=== PATIENT | female | born 1995 | race African-American/Black ===

== ENCOUNTER 2021-09-04 13:16 | Emergency (ER) | payer MEDICAID, OTHER ==
[~2021-09-04] VITALS: Ht 167.6 cm; Wt 89.0 kg
[2021-09-04 14:30] LABS: Basophils # (auto) 0 10 ^3/uL (0-0.2); Eosinophils # (auto) 0 10 ^3/uL (0-0.8); Lymphocytes # (auto) 4.1 10 ^3/uL (0.4-5.4); Nucleated Red Blood Cells % 0.2 %
[2021-09-04 14:32] LABS: Basophils % (auto) 0.5 % (0.0-2.0); Eosinophils % (auto) 0.3 % (0.0-7.0); Hematocrit 39.6 % (36.0-46.0); Hemoglobin 12.5 g/dL (12.2-16.2); Lymphocytes % (auto) 41.9 % (10.0-50.0); Mean Corpuscular Hgb Conc. 31.5 g/dL (32.0-36.0); Mean Corpuscular Volume 79.4 fL (80.0-100.0); Monocytes # (auto) 1.1 10 ^3/uL (0-1.3); Monocytes % (auto) 10.9 % (0.0-12.0); Neutrophils # (auto) 4.6 10 ^3/uL (1.6-8.6); Neutrophils % (auto) 46.4 % (37.0-80.0); Red Blood Cells 4.98 10^6/uL (4.0-5.20); Red Cell Distribution Width 15.4 % (11.8-14.3); White Blood Cell 9.8 10^3/uL (4.4-10.8)
[2021-09-04 14:44] LABS: Urine Bacteria NONE SEEN /hpf (None Seen); Urine Blood Negative /uL (Negative); Urine Specific Gravity 1.027 (1.001-1.035); Urine WBC 1 /hpf (0 - 5)
[2021-09-04 14:47] LABS: Albumin 3.6 g/dL (3.4-5.0); Calcium 9.2 mg/dL (8.5-10.1); Magnesium 1.9 mg/dL (1.6-2.6)
[2021-09-04 14:51] LABS: BUN/Creatinine Ratio 23.1; Bilirubin, Total 1.9 mg/dL (0.2-1.0)
[2021-09-04 15:00] VITALS: BP 130/70
[2021-09-04] MEDS ORDERED: AZIT500T66 PO (16:16)
[2021-09-04] MEDS ORDERED: LIDO2SOL23 MT (16:16)
== END 2021-09-04 16:47 | disposition home or self-care (01) ==
LOC: ER 13:16
DX: J03.90 Acute tonsillitis, unspecified (principal); R07.89 Other chest pain
CPT/HCPCS: 36415; 71046; 80053; 81001; 83735; 84484; 85025; 93005

== ENCOUNTER 2022-11-22 15:35 | Inpatient (IN) | payer MEDICAID, OTHER ==
[~2022-11-22] VITALS: Ht 167.6 cm; Wt 98.1 kg
[~2022-11-22 15:35] MED LIST: AZIT500T66 PO; LIDO2SOL26 MT
[2022-11-22 16:49] LABS: Basophils # (auto) 0 10 ^3/uL (0-0.2); Basophils % (auto) 0.2 % (0.0-2.0); Eosinophils # (auto) 0 10 ^3/uL (0-0.8); Hemoglobin 9.5 g/dL (12.2-16.2); Neutrophils # (auto) 11.4 10 ^3/uL (1.6-8.6); Nucleated Red Blood Cells % 0.1 %
[2022-11-22 16:51] LABS: Hematocrit 30.6 % (36.0-46.0); Lymphocytes # (auto) 1.9 10 ^3/uL (0.4-5.4); Lymphocytes % (auto) 13.3 % (10.0-50.0); Mean Corpuscular Hemoglobin 23.7 pg (28.0-32.0); Mean Corpuscular Hgb Conc. 30.9 g/dL (32.0-36.0); Mean Corpuscular Volume 76.6 fL (80.0-100.0); Monocytes # (auto) 0.9 10 ^3/uL (0-1.3); Monocytes % (auto) 6.5 % (0.0-12.0); Red Cell Distribution Width 16.4 % (11.8-14.3); White Blood Cell 14.3 10^3/uL (4.4-10.8)
[2022-11-22 17:21] LABS: Alanine Aminotransferase 10 U/L (7-40); Albumin 3.6 g/dL (3.2-4.8); Alkaline Phosphatase 69 U/L (46-116); Anion Gap 6 (5-15); Aspartate Aminotransferase 10 U/L (13-40); BUN/Creatinine Ratio 47.8 (10.0-20.0); Blood Urea Nitrogen 32 mg/dL (9-23); Calcium 8.7 mg/dL (8.7-10.4); Carbon Dioxide 26 mmol/L (20-30); Chloride 107 mmol/L (98-107); Glucose 133 mg/dL (74-106); Lipase 36 U/L (12-53); Sodium 139 mmol/L (136-145)
[2022-11-22 17:22] LABS: Total Protein 6.4 g/dL (5.7-8.2)
[2022-11-22 18:32] VITALS: PULSE 124; RESP 21; O2SAT 100
[2022-11-22] MEDS ORDERED: PANTOPRAZOLE 80 MG in SODIUM CHL 0.9% 100 ML IV ONE (19:15)
[2022-11-22] MEDS ORDERED: PANTOPRAZOLE 40mg/50ML NS AE 50 ML IV ONE (19:15)
[2022-11-22] MEDS ORDERED: SODIUM CHLORIDE 0.9% 2,850 ML IV ONE (19:15)
[2022-11-22] MEDS ORDERED: VANCOMYCIN 1GM/250ML 250 ML IV ONE ×2 (19:15→20:30)
[2022-11-22] MEDS ORDERED: PIPERACILLIN-TAZO 4.5GM 100 ML IV ONE (19:15)
[2022-11-22 19:27] LABS: INR 1.1 (0.9-1.15); Prothrombin Time 11.5 sec (9.3-11.8)
[2022-11-22 19:35] LABS: Acetaminophen < 2.0 UG/ML (10.0-20.0)
[2022-11-22 19:37] LABS: Salicylate < 3.0 mg/dL (2.8-20.0)
[2022-11-22 19:40] VITALS: PULSE 130; RESP 15; O2SAT 100
[2022-11-22] MEDS ORDERED: HYDROcodone-ACET 5/325MG TAB PO PRN (21:00)
[2022-11-22] MEDS ORDERED: VANCOMYCIN PER PHARMACY 0 MG IV SCH (21:00)
[2022-11-22] MEDS ORDERED: ACETAMINOPHEN 325 MG TAB PO PRN (21:00)
[2022-11-22] MEDS: MORPHINE SULFATE INJ 2 MG/ml SYRG IV PRN (21:53)
[2022-11-22] MEDS: SODIUM CHLORIDE 0.9% 1,000 ML IV SCH (21:55)
[2022-11-23] VITALS (10 sets, daily range): BP systolic 108–135; BP diastolic 66–77; PULSE 107–132; RESP 14–20; TEMP 98.1–99.3; O2SAT 97–100
[2022-11-23] MEDS ORDERED: NITROGLYCERIN 0.4 MG SL TAB SL PRN
[2022-11-23] MEDS ORDERED: MORPHINE SULFATE INJ 2 MG/ml SYRG IV PRN
[2022-11-23] MEDS: SODIUM CHLORIDE 0.9% 1,000 ML IV SCH (00:25)
[2022-11-23 05:10] LABS: Urine Bacteria NONE SEEN /hpf (None Seen); Urine Blood 2+ /uL (Negative); Urine Clarity Clear (Clear); Urine Color Colorless (Yellow); Urine Protein, UAD Negative (Negative); Urine Specific Gravity 1.019 (1.001-1.035); Urine Urobilinogen Normal (Negative); Urine WBC 6 /hpf (0 - 5)
[2022-11-23 05:22] LABS: Amphetamine Screen, Urine Neg (NEGATIVE); Barbiturate Scree,Urine Neg (NEGATIVE); Benzodiazephine Screen, Urine Neg (NEGATIVE); Cocaine Screen, Urine Neg (NEGATIVE); Opiate Scree,Urine Neg (NEGATIVE); Phencyclidine Screen, Urine Neg (NEGATIVE)
[2022-11-23 05:23] LABS: Cannabinoid Screen, Urine Neg (NEGATIVE)
[2022-11-23] MEDS: PANTOPRAZOLE 40mg/50ML NS AE 50 ML IV SCH ×3 (05:49→17:48)
[2022-11-23 06:38] LABS: Albumin 2.9 g/dL (3.2-4.8); Alkaline Phosphatase 51 U/L (46-116); Anion Gap 7 (5-15); Aspartate Aminotransferase < 8 U/L (13-40); BUN/Creatinine Ratio 41.1 (10.0-20.0); Bilirubin, Total 0.9 mg/dL (0.2-1.0); Blood Urea Nitrogen 23 mg/dL (9-23); Calcium 7.7 mg/dL (8.7-10.4); Carbon Dioxide 22 mmol/L (20-30); Chloride 112 mmol/L (98-107); Glucose 92 mg/dL (74-106); Potassium 3.7 mmol/L (3.5-5.1); Sodium 141 mmol/L (136-145); Total Protein 5.3 g/dL (5.7-8.2)
[2022-11-23 06:53] LABS: Alanine Aminotransferase < 9 U/L (7-40)
[2022-11-23 07:05] LABS: Eosinophils # (auto) 0 10 ^3/uL (0-0.8); Monocytes # (auto) 1.9 10 ^3/uL (0-1.3); Red Cell Distribution Width 16.4 % (11.8-14.3)
[2022-11-23 07:07] LABS: Basophils # (auto) 0.1 10 ^3/uL (0-0.2); Basophils % (auto) 0.3 % (0.0-2.0); Eosinophils % (auto) 0.2 % (0.0-7.0); Hematocrit 18.9 % (36.0-46.0); Lymphocytes # (auto) 4.1 10 ^3/uL (0.4-5.4); Mean Corpuscular Hemoglobin 23.8 pg (28.0-32.0); Mean Corpuscular Hgb Conc. 31.3 g/dL (32.0-36.0); Mean Corpuscular Volume 76.2 fL (80.0-100.0); Neutrophils # (auto) 12.6 10 ^3/uL (1.6-8.6); Neutrophils % (auto) 67.5 % (37.0-80.0); Red Blood Cells 2.48 10^6/uL (4.0-5.20); White Blood Cell 18.7 10^3/uL (4.4-10.8)
[2022-11-23 07:41] LABS: Hemoglobin 5.9 g/dL (12.2-16.2)
[2022-11-23 08:12] LABS: % Iron Saturation 5.7 % (15-50)
[2022-11-23] MEDS ORDERED: VANCOMYCIN 1GM/250ML 250 ML IV ONE (09:00)
[2022-11-23] MEDS: cefTRIAXone 1GM/50ML D5W 50 ML IV SCH (09:38)
[2022-11-23] MEDS: ONDANSETRON HCL 4 MG/2 ML VIAL IV PRN ×2 (14:46→20:37)
[2022-11-23] MEDS: MORPHINE SULFATE INJ 2 MG/ml SYRG IV PRN ×2 (14:46→20:38)
[2022-11-23 17:08] LABS: Basophils # (auto) 0.1 10 ^3/uL (0-0.2); Basophils % (auto) 0.6 % (0.0-2.0); Eosinophils # (auto) 0 10 ^3/uL (0-0.8); Eosinophils % (auto) 0.1 % (0.0-7.0); Hematocrit 25.9 % (36.0-46.0); Hemoglobin 8.5 g/dL (12.2-16.2); Lymphocytes # (auto) 6.4 10 ^3/uL (0.4-5.4); Lymphocytes % (auto) 41.5 % (10.0-50.0); Mean Corpuscular Hgb Conc. 32.9 g/dL (32.0-36.0); Mean Corpuscular Volume 82.1 fL (80.0-100.0); Monocytes # (auto) 1.3 10 ^3/uL (0-1.3); Monocytes % (auto) 8.2 % (0.0-12.0); Neutrophils # (auto) 7.6 10 ^3/uL (1.6-8.6); Neutrophils % (auto) 49.6 % (37.0-80.0); Nucleated Red Blood Cells % 0.2 %; Red Blood Cells 3.16 10^6/uL (4.0-5.20); White Blood Cell 15.4 10^3/uL (4.4-10.8)
[2022-11-23] MEDS: VANCOMYCIN 1GM/250ML 250 ML IV SCH (20:16)
[2022-11-24] VITALS (7 sets, daily range): BP systolic 92–132; BP diastolic 52–80; PULSE 85–105; RESP 15–18; TEMP 97.9–98.7; O2SAT 96–100
[2022-11-24] MEDS: SODIUM CHLORIDE 0.9% 1,000 ML IV SCH (00:19)
[2022-11-24] MEDS: PANTOPRAZOLE 40mg/50ML NS AE 50 ML IV SCH ×6 (00:19→23:52)
[2022-11-24] MEDS: VANCOMYCIN 1GM/250ML 250 ML IV SCH (04:21)
[2022-11-24 06:25] LABS: Basophils # (auto) 0.1 10 ^3/uL (0-0.2); Basophils % (auto) 0.4 % (0.0-2.0); Eosinophils # (auto) 0.1 10 ^3/uL (0-0.8); Eosinophils % (auto) 0.5 % (0.0-7.0); Hematocrit 26.1 % (36.0-46.0); Hemoglobin 8.6 g/dL (12.2-16.2); Lymphocytes # (auto) 5.4 10 ^3/uL (0.4-5.4); Lymphocytes % (auto) 44.1 % (10.0-50.0); Mean Corpuscular Hemoglobin 27.4 pg (28.0-32.0); Mean Corpuscular Hgb Conc. 33.1 g/dL (32.0-36.0); Mean Corpuscular Volume 82.8 fL (80.0-100.0); Monocytes # (auto) 0.9 10 ^3/uL (0-1.3); Monocytes % (auto) 7.7 % (0.0-12.0); Neutrophils # (auto) 5.8 10 ^3/uL (1.6-8.6); Neutrophils % (auto) 47.3 % (37.0-80.0); Nucleated Red Blood Cells % 0.1 %; Red Blood Cells 3.15 10^6/uL (4.0-5.20); Red Cell Distribution Width 19.3 % (11.8-14.3); White Blood Cell 12.3 10^3/uL (4.4-10.8)
[2022-11-24 06:49] LABS: INR 1.09 (0.9-1.15); Partial Thromboplastin Time 26.2 SEC (24.5-34.5); Prothrombin Time 11.4 sec (9.3-11.8)
[2022-11-24 06:56] LABS: Albumin 2.8 g/dL (3.2-4.8); Alkaline Phosphatase 49 U/L (46-116); Anion Gap 6 (5-15); Aspartate Aminotransferase 10 U/L (13-40); BUN/Creatinine Ratio 16.4 (10.0-20.0); Bilirubin, Total 3.1 mg/dL (0.2-1.0); Carbon Dioxide 24 mmol/L (20-30); Chloride 110 mmol/L (98-107); Glucose 97 mg/dL (74-106); Magnesium 1.6 mg/dL (1.6-2.6); Potassium 3.7 mmol/L (3.5-5.1); Sodium 140 mmol/L (136-145); Total Protein 5.2 g/dL (5.7-8.2)
[2022-11-24 07:06] LABS: Alanine Aminotransferase < 9 U/L (7-40); Blood Urea Nitrogen 9 mg/dL (9-23)
[2022-11-24] MEDS ORDERED: SODIUM CHLORIDE LOCK 10 ML ONE (08:08)
[2022-11-24] MEDS ORDERED: LIDOCAINE VISCOUS 2% 15ML UD ONE (08:08)
[2022-11-24] MEDS: cefTRIAXone 1GM/50ML D5W 50 ML IV SCH (09:02)
[2022-11-24] MEDS: diphenhdrAMINE HCL 50 MG/1 ML VL ONE ×2 (09:58→10:03)
[2022-11-24] MEDS: fentaNYL CITRATE 100 MCG/2 ML VL ONE ×2 (09:58→10:03)
[2022-11-24] MEDS: MIDAZOLAM HCL 5 MG/ML-1ML VIAL ONE ×2 (09:58→10:03)
[2022-11-24 12:00] LABS: Free T4 (Free Thyroxine) 1.52 ng/dL (0.89-1.76)
[2022-11-24] MEDS: SUCRALFATE 1 GM/10 ML ORAL SUSP PO SCH ×3 (12:22→21:51)
[2022-11-24 14:48] LABS: Folate (Folic Acid) 17.89 ng/mL (>5.38)
[2022-11-24 14:50] LABS: Ferritin 12.4 ng/mL (10-291)
[2022-11-24] MEDS: MORPHINE SULFATE INJ 2 MG/ml SYRG IV PRN (17:59)
[2022-11-25] MEDS: PANTOPRAZOLE 40mg/50ML NS AE 50 ML IV SCH (04:48)
[2022-11-25 05:00] VITALS: BP 123/51; PULSE 101; RESP 18; TEMP 97.6; O2SAT 99
[2022-11-25 05:43] LABS: Basophils # (auto) 0 10 ^3/uL (0-0.2); Basophils % (auto) 0.3 % (0.0-2.0); Eosinophils # (auto) 0 10 ^3/uL (0-0.8); Eosinophils % (auto) 0.3 % (0.0-7.0); Hematocrit 25.8 % (36.0-46.0); Hemoglobin 8.5 g/dL (12.2-16.2); Lymphocytes # (auto) 4.2 10 ^3/uL (0.4-5.4); Mean Corpuscular Hemoglobin 27.1 pg (28.0-32.0); Mean Corpuscular Hgb Conc. 32.9 g/dL (32.0-36.0); Mean Corpuscular Volume 82.3 fL (80.0-100.0); Monocytes % (auto) 9.1 % (0.0-12.0); Neutrophils # (auto) 5.3 10 ^3/uL (1.6-8.6); Neutrophils % (auto) 50.3 % (37.0-80.0); Nucleated Red Blood Cells % 0.1 %; Red Blood Cells 3.13 10^6/uL (4.0-5.20); Red Cell Distribution Width 19.2 % (11.8-14.3); White Blood Cell 10.6 10^3/uL (4.4-10.8)
[2022-11-25 06:04] LABS: Alkaline Phosphatase 48 U/L (46-116); Anion Gap 5 (5-15); Carbon Dioxide 26 mmol/L (20-30); Chloride 109 mmol/L (98-107); Glucose 88 mg/dL (74-106); Magnesium 1.6 mg/dL (1.6-2.6); Potassium 3.6 mmol/L (3.5-5.1); Sodium 140 mmol/L (136-145)
[2022-11-25 06:05] LABS: Albumin 2.9 g/dL (3.2-4.8); Aspartate Aminotransferase < 8 U/L (13-40)
[2022-11-25 06:06] LABS: Total Protein 5.3 g/dL (5.7-8.2)
[2022-11-25] MEDS: SUCRALFATE 1 GM/10 ML ORAL SUSP PO SCH (06:22)
[2022-11-25 06:36] LABS: Alanine Aminotransferase < 9 U/L (7-40); BUN/Creatinine Ratio 8.2 (10.0-20.0); Blood Urea Nitrogen < 5 mg/dL (9-23)
[2022-11-25 09:25] VITALS: BP 127/61; PULSE 98; RESP 21; TEMP 98.2; O2SAT 98
[2022-11-25] MEDS: cefTRIAXone 1GM/50ML D5W 50 ML IV SCH (09:57)
[2022-11-25] MEDS ORDERED: PANT40TA2 PO (10:16)
[2022-11-25] MEDS ORDERED: AZIT-74 PO ×2 (10:16)
[2022-11-25] MEDS ORDERED: SUCR1TAB22 OR (10:16)
[2022-11-25] MEDS ORDERED: AZITTAB PO (10:18)
== END 2022-11-25 12:00 | disposition home or self-care (01) | DRG 241 ==
LOC: ER 15:35 → EDBD 15:35 → UNDOADMIN 22:24 → OVERFLOW 22:24 → CENTRAL 11-23 16:44
PROVIDERS: ADMIT Nurse Practitioner Family; ATTEND Internal Medicine Geriatric Medicine
PROC: 30233N1 Transfusion of Nonautologous Red Blood Cells into Peripheral Vein, Percutaneous Approach (ICD-10-PCS; 2022-11-23)
PROC: 05HB33Z Insertion of Infusion Device into Right Basilic Vein, Percutaneous Approach (ICD-10-PCS; 2022-11-23)
PROC: B54MZZA Ultrasonography of Right Upper Extremity Veins, Guidance (ICD-10-PCS; 2022-11-23)
PROC: 0DB68ZX Excision of Stomach, Via Natural or Artificial Opening Endoscopic, Diagnostic (ICD-10-PCS; 2022-11-24)
PROC: 0DB98ZX Excision of Duodenum, Via Natural or Artificial Opening Endoscopic, Diagnostic (ICD-10-PCS; principal; 2022-11-24 09:51)
DX: K29.71 Gastritis, unspecified, with bleeding (principal); K22.11 Ulcer of esophagus with bleeding; D62 Acute posthemorrhagic anemia; E86.0 Dehydration; D50.9 Iron deficiency anemia, unspecified; D72.829 Elevated white blood cell count, unspecified; N92.0 Excessive and frequent menstruation with regular cycle; E05.90 Thyrotoxicosis, unspecified without thyrotoxic crisis or storm; N39.0 Urinary tract infection, site not specified; K29.80 Duodenitis without bleeding; K44.9 Diaphragmatic hernia without obstruction or gangrene; B96.89 Other specified bacterial agents as the cause of diseases classified elsewhere; Z82.49 Family history of ischemic heart disease and other diseases of the circulatory system
CPT/HCPCS: 36415; 43239; 71045; 74176; 76830; 76856; 80053; 80307; 80320; 80329; 81001; 81025; 82607; 82728; 82746; 83540; 83550; 83615; 83690; 83735; 84439; 84443; 84481; 84702; 85025; 85048; 85610; 85730; 86850; 86900; 86901; 86920; 87040; 87045; 87086; 87427; 96365; 96366; C9113; G0378; J0696; J2250; J2405; J2543